=== PATIENT | male | born 1955 | race Two or more races ===

== ENCOUNTER 2019-05-10 07:57 | Emergency (ER) | payer OTHER ==
[~2019-05-10] VITALS: Ht 154.9 cm; Wt 68.9 kg
[~2019-05-10 07:57] MED LIST: ASA325 M1; CRESTOR10 MG; LOSARTAN POTASS50 MG; TENORMIN50 MG
[2019-05-10] MEDS ORDERED: METFORMIN HCL500 MG (08:18)
== END 2019-05-10 14:45 | disposition home or self-care (01) ==
LOC: CPU-OBS 07:57 → ER 07:57
DX: R07.89 Other chest pain (principal)
CPT/HCPCS: G0378; G0379; 93005